=== PATIENT | female | born 1950 | race Caucasian/White ===

== ENCOUNTER → 2025-06-27 | Outpatient (CLI) | payer MEDICARE, SELFPAY ==
--- NOTE | 2025-06-27 09:48 | MRI_ITS ---
PROCEDURE: SPINE LUMBAR (ROUTINE) 06/27/2025 REASON FOR EXAM: PAIN X6 YEARS, STENOSIS, DDD TECHNIQUE: Procedure Code: MRISPL Modality: MR Procedure: SPINE LUMBAR (ROUTINE) COMPARISON: Radiograph from June 11, 2025 FINDINGS: Discogenic endplate signal changes are noted at L2-L3. There is minimal retrolisthesis of L1 on L2 and L2 on L3. This spaces are narrowed at L2-L3 and L5-S1. There is minimal anterolisthesis of L4 on L5. The conus is noted posterior to L2. There is a fairly large area of increased T2 signal in the pelvis anteriorly on the right which is incompletely included in the field of view on image 1, series 19. On image 1 of series 20 this does not seem to be a mass and is simply a region in between bowel loops. The paravertebral soft tissues are otherwise unremarkable. L1-2: There is a mild concentric disc bulge without significant stenosis. L2-3: There is a broad-based posterior disc bulge with more focal protrusion in the right subarticular zone on image 22, series 19 and image 6, series 16 which likely affects lateral recess structures. The exiting nerve root is not definitively compromise. No significant central canal stenosis. L3-4: There is bilateral facet arthropathy without significant stenosis. L4-5: There is facet arthropathy and a concentric disc bulge. There is mild AP canal diameter narrowing to 8.6 mm. L5-S1: There is bilateral facet arthropathy which may contact the exiting nerve root on the right on image 7, series 19. no central canal stenosis. Sacrum: The visualized sacrum is unremarkable. MRI/Spine Lumbar (Routine) IMPRESSION: Multilevel degenerative disc disease with a focal protrusion in the right subar ticular zone at L2-L3 with compromise of the lateral recess. Please see above for additional details by level. Reading [facility]
== END | disposition home or self-care (01) ==
PROVIDERS: PCP Physician Assistant; Referring Provider Student in an Organized Health Care Education/Training Program; Visit Provider Student in an Organized Health Care Education/Training Program
DX: M48.062 Spinal stenosis, lumbar region with neurogenic claudication (principal); M51.362 Other intervertebral disc degeneration, lumbar region with discogenic back pain and lower extremity pain
CPT/HCPCS: 72148